=== PATIENT | female | born 1930 | race Caucasian/White ===

== ENCOUNTER 2017-02-24 11:26 | Inpatient (IN) | payer MEDICARE, OTHER ==
[2017-02-24 12:29] LABS: BASO % 0.4 % (0.0-2.0); EOS # 0.1 K/uL (0.0-0.7); EOS % 1.8 % (0.0-4.0); HEMATOCRIT 33.8 % (34.0-47.0); LYMPH # 1.8 K/uL (1.0-4.3); MEAN CELL VOLUME 95.9 fl (81.0-99.0); MEAN CORPUSCULAR HEMOGLOBIN 30.8 pg (27.0-31.0); MEAN CORPUSCULAR HGB CONC 32.1 g/dL (33.0-37.0); MEAN PLATELET VOLUME 8.2 fl (7.2-11.7); MONO # 0.7 K/uL (0.0-0.8); MONO % 8.1 % (0.0-10.0); NEUT # 5.4 K/uL (1.8-7.0); NEUT % 67.7 % (50.0-75.0); RED CELL DISTRIBUTION WIDTH 15.5 % (11.5-14.5)
[2017-02-24 12:43] LABS: BILIRUBIN,TOTAL 0.3 mg/dl (0.2-1.3); POTASSIUM 4.6 MMOL/L (3.6-5.0); TOTAL PROTEIN 7.5 G/DL (6.3-8.2)
[2017-02-24 12:57] LABS: TROPONIN I 0.014 ng/mL (0.00-0.120)
--- NOTE | 2017-02-24 13:18 | RAD ---
HISTORY: cough COMPARISON: No prior. TECHNIQUE: Chest PA and lateral FINDINGS: LUNGS: Stable chronic prominence of the bilateral interstitial markings. No focal consolidation. PLEURA: No significant pleural effusion identified. No pneumothorax apparent. CARDIOVASCULAR: Atherosclerotic aortic calcifications. Cardiomediastinal silhouette unremarkable. OSSEOUS STRUCTURES: Unchanged. VISUALIZED UPPER ABDOMEN: Normal. OTHER FINDINGS: None. IMPRESSION: Stable chronic prominence of the bilateral interstitial markings. No focal consolidation pleural effusion.
--- NOTE | 2017-02-24 13:31 | CARD ---
APPROVED REPORT EKG Measurement Heart [id number] <Conclusion> Accelerated Junctional rhythm Abnormal ECG
[2017-02-24] MEDS ORDERED: cefTRIAXone IV 1 gm in Dextros 50 ML IVPB STA (13:40)
--- NOTE | 2017-02-24 13:46 | ED PDOC ---
HPI: CCC, URI, Sore Throat Time Seen by Provider: 02/24/17 11:54 Chief Complaint (Nursing): Weakness/Neurological Deficit Chief Complaint (Provider): cough History Per: Patient History/Exam Limitations: no limitations Additional Complaint(s): 83yo F in ED with cough x 3 week with low grade fever and whit sputum production hx of CHF DM. Pt denies chest pain with cough, denies palpitations denies abdominal pain. dneis LE swelling. Past Medical History Reviewed: Historical Data, Nursing Documentation, Vital Signs Vital Signs: Last Vital Signs Temp 97.9 F 02/24/17 11:37 Pulse 79 02/24/17 11:37 Resp 20 02/24/17 11:37 BP 134/50 L 02/24/17 11:37 Pulse Ox 93 L 02/24/17 11:37 - Medical History PMH: CHF, HTN, Hypercholesterolemia Denies: HIV, Chronic Kidney Disease - Surgical History Surgical History: Cholecystectomy (1994) - Family History Family History: States: No Known Family Hx - Home Medications Home Medications: Ambulatory Orders Medication Instructions Recorded Albiglutide [Tanzeum] 50 mg SC QWK 04/09/15 Alendronate [Fosamax] 70 mg PO QWK 04/09/15 Aspirin [Aspirin EC] 81 mg PO DAILY 04/09/15 Calcium Carbonate [Calcium 600] 600 mg PO BID 04/09/15 Carvedilol [Coreg] 25 mg PO BID 04/09/15 Clopidogrel [Plavix] 75 mg PO DAILY 04/09/15 Enalapril Maleate [Enalapril 20 mg PO DAILY 04/09/15 Maleate] Linagliptin [Tradjenta] 5 mg PO DAILY 04/09/15 Multivit,Iron,Min 5/Folic Acid 1 tab PO DAILY 04/09/15 [Strovite Forte] Omeprazole [Omeprazole] 40 mg PO DAILY 04/09/15 Simvastatin [Zocor] 20 mg PO HS 04/09/15 amLODIPine [Norvasc] 5 mg PO DAILY 04/09/15 Atorvastatin [Lipitor] 10 mg PO DAILY #0 tab 04/11/15 Calcium Carbonate [Oscal] 500 mg PO DAILY #0 tab 04/11/15 Carvedilol [Coreg] 25 mg PO BID #0 tab 04/11/15 Clopidogrel [Plavix] 75 mg PO DAILY #0 tab 04/11/15 Enalapril Maleate [Vasotec] 20 mg PO DAILY #0 tab 04/11/15 Ferrous Sulfate 325 mg PO DAILY #0 tab 04/11/15 Furosemide [Lasix] 40 mg IVP DAILY #0 vial 04/11/15 Furosemide [Lasix] 40 mg PO DAILY #0 bottle 04/11/15 Linagliptin [Tradjenta] 5 mg PO DAILY 04/11/15 Potassium Chloride [K-Dur 10] 10 meq PO DAILY #0 ter 04/11/15 amLODIPine [Norvasc] 5 mg PO DAILY #0 tab 04/11/15 - Allergies Allergies/Adverse Reactions: Allergies Allergy/AdvReac Type Severity Reaction Status Date / Time No Known Allergies Allergy Verified 04/09/15 15:36 Curb-65 Severity Score - CURB-65 Severity Score Confusion: No Bun >19mg/dl (>7mmol/L): No Respiratory Rate greater than/equal to 30: No Systolic BP <90 or Diastolic BP less than/equal 60mmHg: No Age >64: Yes Curb-65 Score: 1 Percentage 30-day mortality: 2.7% Review of Systems ROS Statement: Except As Marked, All Systems Reviewed And Found Negative Constitutional: Negative for: Fever, Chills Respiratory: Positive for: Cough, Shortness of Breath, SOB with Exertion, Sputum , Wheezing Physical Exam - Reviewed Nursing Documentation Reviewed: Yes Vital Signs Reviewed: Yes - Physical Exam Appears: Positive for: Well, Non-toxic, No Acute Distress Head Exam: Positive for: ATRAUMATIC, NORMAL INSPECTION, NORMOCEPHALIC Skin: Positive for: Normal Color, Warm, DRY Eye Exam: Positive for: Normal appearance, EOMI, PERRL Neck: Positive for: Normal, Painless ROM Cardiovascular/Chest: Positive for: Regular Rate, Rhythm Respiratory: Positive for: Rales, Rhonchi Gastrointestinal/Abdominal: Positive for: Normal Exam, Bowel Sounds, Soft Back: Positive for: Normal Inspection Extremity: Positive for: Normal ROM Neurologic/Psych: Positive for: Alert, Oriented - Laboratory Results Result Diagrams: 02/24/17 12:20 02/24/17 12:20 - ECG O2 Sat by Pulse Oximetry: 93 - Radiology X-Ray: Interpreted by Me, Read By Radiologist Medical Decision Making Medical Decision Making: [facility] MD pt started on azithromycin and Rocephin IV in ER Disposition - Clinical Impression Clinical Impression: COPD exacerbation - Patient ED Disposition Is Patient to be Admitted: Yes - Disposition Disposition Time: 13:56 Condition: STABLE - Pt Status Changed To: Hospital Disposition Of: Inpatient - Admit Certification Admit to Inpatient:: After my assessment, the patient will require hospitalization for at least two midnights. This is because of the severity of symptoms shown, intensity of services needed, and/or the medical risk in this patient being treated as an outpatient.
[2017-02-24] MEDS ORDERED: cefTRIAXone (Rocephin) 250 mg Inj ONE (14:05)
[2017-02-24] MEDS ORDERED: Azithromycin 500 MG in Sodium Chloride 0.9% 250 ML IVPB SCH (16:45)
[2017-02-24] MEDS: Enoxaparin 30 mg Syringe SC SCH (17:27)
[2017-02-24] MEDS: Calcium-Vit D 500 mg-200 Units Tab UD PO SCH (17:27)
[2017-02-24] MEDS: Dexamethasone/Tobramycin Ophth Susp OU SCH (17:28)
[2017-02-24] MEDS: Azithromycin 500 MG in Sodium Chloride 0.9% 250 ML IVPB SCH (20:52)
--- NOTE | 2017-02-24 22:14 | CP.PCM.HP ---
History of Present Illness - History of Present Illness History of Present Illness: This is an 86 y/o female with hx of DM 2 CKD 2 and HTN who was admitted for worsening of productive cough for the past week. Past Patient History - Infectious Disease Hx of Infectious Diseases: None - Past Medical History & Family History Past Medical History?: Yes - Past Social History Smoking Status: Never Smoked - CARDIAC Hx Cardiac Disorders: Yes (HTN) Hx Hypertension: Yes - PULMONARY Hx Respiratory Disorders: Yes (COPD) - NEUROLOGICAL Hx Neurological Disorder: No - HEENT Hx HEENT Problems: No Hx Cataracts: Yes (s/p cataract surgery) - RENAL Hx Chronic Kidney Disease: No Hx Dialysis: No - ENDOCRINE/METABOLIC Hx Endocrine Disorders: Yes (DM) - HEMATOLOGICAL/ONCOLOGICAL Hx Blood Disorders: No Hx Human Immunodeficiency Virus (HIV): No - INTEGUMENTARY Hx Dermatological Problems: No - MUSCULOSKELETAL/RHEUMATOLOGICAL Hx Musculoskeletal Disorders: No Hx Falls: No - GASTROINTESTINAL Hx Gastrointestinal Disorders: No - GENITOURINARY/GYNECOLOGICAL Hx Genitourinary Disorders: No - PSYCHIATRIC Hx Psychophysiologic Disorder: No Hx Substance Use: No - SURGICAL HISTORY Hx Cholecystectomy: Yes (1994) - ANESTHESIA Hx Anesthesia: Yes Hx Anesthesia Reactions: No Hx Malignant Hyperthermia: No Meds Allergies/Adverse Reactions: Allergies Allergy/AdvReac Type Severity Reaction Status Date / Time No Known Allergies Allergy Verified 04/09/15 15:36 Results - Vital Signs Recent Vital Signs: Last Vital Signs Temp 98.5 F 02/24/17 16:15 Pulse 78 02/24/17 17:27 Resp 19 02/24/17 16:30 BP 145/76 02/24/17 17:27 Pulse Ox 95 02/24/17 16:30 - Labs Result Diagrams: 02/24/17 12:20 02/24/17 12:20 Labs: Laboratory Results - last 24 hr 02/24/17 02/24/17 02/24/17 12:20 12:20 12:20 WBC 8.0 D RBC 3.52 L Hgb 10.9 L Hct 33.8 L MCV 95.9 D MCH 30.8 MCHC 32.1 L RDW 15.5 H Plt Count 154 MPV 8.2 Neut % (Auto) 67.7 Lymph % (Auto) 22.0 [place] % (Auto) 8.1 Eos % (Auto) 1.8 Baso % (Auto) 0.4 Neut # 5.4 Lymph # 1.8 [place] # 0.7 Eos # 0.1 Baso # 0.0 Sodium 137 Potassium 4.6 Chloride 104 Carbon Dioxide 25 Anion Gap 13 BUN 32 H Creatinine 1.3 H Est GFR ( Amer) 47 Est GFR (Non-Af Amer) 39 Random Glucose 133 H Calcium 9.0 Total Bilirubin 0.3 AST 33 ALT 28 Alkaline Phosphatase 86 Troponin I 0.0140 NT-Pro-B Natriuret Pep 662 Total Protein 7.5 Albumin 3.7 Globulin 3.7 Albumin/Globulin Ratio 1.0 Influenza Typ A,B (EIA) Negative for flu a/b
[2017-02-24 23:19] LABS: RBC URINE 1 /hpf (0-3); URINE BILIRUBIN NEGATIVE (NEGATIVE); URINE BLOOD NEGATIVE (NEGATIVE); URINE COLOR STRAW (YELLOW); URINE GLUCOSE (UA) NEG (Normal); URINE KETONE NEGATIVE (NEGATIVE); URINE LEUKOCYTE ESTERASE NEG Leu/uL (Negative); URINE PROTEIN NEGATIVE (NEGATIVE); URINE UROBILINOGEN 0.2-1.0 mg/dL (0.2-1.0); WBC URINE 1 /hpf (0-5)
[2017-02-25] MEDS: guaiFENesin DM 200 mg-20 mg/10 ml UD PO PRN (06:15)
[2017-02-25] MEDS: Albuterol-Ipratrop 3 mg / 0.5 (3 ml) UD INH SCH ×4 (08:02→19:01)
[2017-02-25] MEDS ORDERED: cefTRIAXone 1 gm in cefTRIAXone IV 1 gm in Dextros 50 ML IVPB SCH (09:00)
[2017-02-25] MEDS: Calcium-Vit D 500 mg-200 Units Tab UD PO SCH ×2 (09:52→17:10)
[2017-02-25] MEDS: Dexamethasone/Tobramycin Ophth Susp OU SCH ×2 (09:52→17:10)
[2017-02-25] MEDS: Pantoprazole 40 mg EC Tab PO SCH (09:53)
[2017-02-25] MEDS: Enoxaparin 30 mg Syringe SC SCH (09:53)
[2017-02-25] MEDS: Azithromycin 500 MG in Sodium Chloride 0.9% 250 ML IVPB SCH (21:21)
[2017-02-26] MEDS: guaiFENesin DM 200 mg-20 mg/10 ml UD PO PRN (05:37)
[2017-02-26] MEDS: Albuterol-Ipratrop 3 mg / 0.5 (3 ml) UD INH SCH ×4 (07:40→19:14)
[2017-02-26] MEDS: cefTRIAXone IV 1 gm in Dextros 50 ML IVPB SCH (09:52)
[2017-02-26] MEDS: Calcium-Vit D 500 mg-200 Units Tab UD PO SCH ×2 (09:52→17:42)
[2017-02-26] MEDS: Pantoprazole 40 mg EC Tab PO SCH (09:53)
[2017-02-26] MEDS: Dexamethasone/Tobramycin Ophth Susp OU SCH ×2 (09:55→17:42)
[2017-02-26] MEDS: Enoxaparin 30 mg Syringe SC SCH (09:56)
[2017-02-26] MEDS: Promethazine/Cod 6.25mg-10mg/5ml Syr UD PO SCH (22:14)
[2017-02-26] MEDS: Azithromycin 500 MG in Sodium Chloride 0.9% 250 ML IVPB SCH (22:14)
[2017-02-27] MEDS: Albuterol-Ipratrop 3 mg / 0.5 (3 ml) UD INH SCH ×4 (07:34→19:04)
[2017-02-27] MEDS: Enoxaparin 30 mg Syringe SC SCH (10:10)
[2017-02-27] MEDS: Pantoprazole 40 mg EC Tab PO SCH (10:10)
[2017-02-27] MEDS: cefTRIAXone IV 1 gm in Dextros 50 ML IVPB SCH (10:10)
[2017-02-27] MEDS: Calcium-Vit D 500 mg-200 Units Tab UD PO SCH ×2 (10:10→19:34)
[2017-02-27] MEDS: Dexamethasone/Tobramycin Ophth Susp OU SCH ×2 (10:11→19:34)
--- NOTE | 2017-02-27 11:07 | CP.PCM.PN ---
Subjective - Date & Time of Evaluation Date of Evaluation: 02/25/17 Time of Evaluation: 10:45 - Subjective Subjective: Has a lot of cough Has no fever. Could not sleep due to cough Objective - Vital Signs/Intake and Output Vital Signs (last 24 hours): Temp Pulse Resp BP Pulse Ox 98.1 F 74 20 139/73 100 02/27/17 08:02 02/27/17 10:08 02/27/17 08:02 02/27/17 10:08 02/27/17 08:02 - Medications Medications: Current Medications Albuterol/Ipratropium (Duoneb 3 Mg/0.5 Mg (3 Ml) Ud) 3 ml INH RQID [facility] Last Admin: 02/27/17 07:34 Dose: 3 ml Aspirin (Ecotrin) 81 mg PO DAILY [facility] Last Admin: 02/27/17 10:09 Dose: 81 mg Atorvastatin Calcium (Lipitor) 20 mg PO DAILY [facility] Last Admin: 02/27/17 10:09 Dose: 20 mg Benzonatate (Tessalon Perles) 100 mg PO TID PRN PRN Reason: Cough Calcium/Vitamin D (Oyster Shell Calcium/Vitamin D 500 Mg-200 Iu) 1 tab PO BID [facility] Last Admin: 02/27/17 10:10 Dose: 1 tab Carvedilol (Coreg) 25 mg PO BID [facility] Last Admin: 02/27/17 10:08 Dose: 25 mg Clopidogrel Bisulfate (Plavix) 75 mg PO DAILY [facility] Last Admin: 02/27/17 10:10 Dose: 75 mg Enalapril Maleate (Vasotec) 20 mg PO DAILY@2100 [facility] Last Admin: 02/26/17 22:14 Dose: 20 mg Enoxaparin Sodium (Lovenox) 30 mg SC DAILY [facility] PRN Reason: Protocol Last Admin: 02/27/17 10:10 Dose: 30 mg Guaifenesin/Dextromethorphan (Robitussin Dm) 10 ml PO Q6 PRN PRN Reason: Cough Last Admin: 02/26/17 05:37 Dose: 10 ml Home Med (Dulaglutide [Trulicity]) 1.5 mg SC QWK [facility] Azithromycin 500 mg/ Sodium (Chloride) 250 mls @ 250 mls/hr IVPB DAILY@2100 [facility] PRN Reason: Protocol Last Admin: 02/26/17 22:14 Dose: 250 mls/hr Ceftriaxone Sodium (Rocephin Iv 1 Gm Duplex) 50 mls @ 50 mls/hr IVPB DAILY [facility] PRN Reason: Protocol Last Admin: 02/27/17 10:10 Dose: 50 mls/hr Pantoprazole Sodium (Protonix Ec Tab) 40 mg PO DAILY [facility] Last Admin: 02/27/17 10:10 Dose: 40 mg Pioglitazone HCl (Actos) 15 mg PO DAILY [facility] Last Admin: 02/27/17 10:08 Dose: 15 mg Promethazine HCl/Codeine (Phenergan/Codeine Oral Syrup) 10 ml PO HS [facility] Last Admin: 02/26/17 22:14 Dose: 10 ml Tobramycin/Dexamethasone (Tobradex Opht Susp) 1 drop OU BID [facility] Last Admin: 02/27/17 10:11 Dose: 1 drop - Labs Labs: 02/24/17 12:20 02/24/17 12:20
--- NOTE | 2017-02-27 11:08 | CP.PCM.PN ---
Subjective - Date & Time of Evaluation Date of Evaluation: 02/26/17 Time of Evaluation: 11:00 - Subjective Subjective: Patient has no chest pain But coughs a lot giovani at night Has body weakness Has poor appetite CXR showed chronic changes. Objective - Vital Signs/Intake and Output Vital Signs (last 24 hours): Temp Pulse Resp BP Pulse Ox 98.1 F 74 20 139/73 100 02/27/17 08:02 02/27/17 10:08 02/27/17 08:02 02/27/17 10:08 02/27/17 08:02 - Medications Medications: Current Medications Albuterol/Ipratropium (Duoneb 3 Mg/0.5 Mg (3 Ml) Ud) 3 ml INH RQID [facility] Last Admin: 02/27/17 07:34 Dose: 3 ml Aspirin (Ecotrin) 81 mg PO DAILY [facility] Last Admin: 02/27/17 10:09 Dose: 81 mg Atorvastatin Calcium (Lipitor) 20 mg PO DAILY [facility] Last Admin: 02/27/17 10:09 Dose: 20 mg Benzonatate (Tessalon Perles) 100 mg PO TID PRN PRN Reason: Cough Calcium/Vitamin D (Oyster Shell Calcium/Vitamin D 500 Mg-200 Iu) 1 tab PO BID [facility] Last Admin: 02/27/17 10:10 Dose: 1 tab Carvedilol (Coreg) 25 mg PO BID [facility] Last Admin: 02/27/17 10:08 Dose: 25 mg Clopidogrel Bisulfate (Plavix) 75 mg PO DAILY [facility] Last Admin: 02/27/17 10:10 Dose: 75 mg Enalapril Maleate (Vasotec) 20 mg PO DAILY@2100 [facility] Last Admin: 02/26/17 22:14 Dose: 20 mg Enoxaparin Sodium (Lovenox) 30 mg SC DAILY [facility] PRN Reason: Protocol Last Admin: 02/27/17 10:10 Dose: 30 mg Guaifenesin/Dextromethorphan (Robitussin Dm) 10 ml PO Q6 PRN PRN Reason: Cough Last Admin: 02/26/17 05:37 Dose: 10 ml Home Med (Dulaglutide [Trulicity]) 1.5 mg SC QWK [facility] Azithromycin 500 mg/ Sodium (Chloride) 250 mls @ 250 mls/hr IVPB DAILY@2100 [facility] PRN Reason: Protocol Last Admin: 02/26/17 22:14 Dose: 250 mls/hr Ceftriaxone Sodium (Rocephin Iv 1 Gm Duplex) 50 mls @ 50 mls/hr IVPB DAILY [facility] PRN Reason: Protocol Last Admin: 02/27/17 10:10 Dose: 50 mls/hr Pantoprazole Sodium (Protonix Ec Tab) 40 mg PO DAILY [facility] Last Admin: 02/27/17 10:10 Dose: 40 mg Pioglitazone HCl (Actos) 15 mg PO DAILY [facility] Last Admin: 02/27/17 10:08 Dose: 15 mg Promethazine HCl/Codeine (Phenergan/Codeine Oral Syrup) 10 ml PO HS [facility] Last Admin: 02/26/17 22:14 Dose: 10 ml Tobramycin/Dexamethasone (Tobradex Opht Susp) 1 drop OU BID [facility] Last Admin: 02/27/17 10:11 Dose: 1 drop - Labs Labs: 02/24/17 12:20 02/24/17 12:20
--- NOTE | 2017-02-27 11:08 | CP.PCM.PN ---
Subjective - Date & Time of Evaluation Date of Evaluation: 02/27/17 Time of Evaluation: 11:08 - Subjective Subjective: Patient is a lot better today Feels very weak., She lives alone Still with a lot of cough. Objective - Vital Signs/Intake and Output Vital Signs (last 24 hours): Temp Pulse Resp BP Pulse Ox 98.1 F 74 20 139/73 100 02/27/17 08:02 02/27/17 10:08 02/27/17 08:02 02/27/17 10:08 02/27/17 08:02 - Medications Medications: Current Medications Albuterol/Ipratropium (Duoneb 3 Mg/0.5 Mg (3 Ml) Ud) 3 ml INH RQID [facility] Last Admin: 02/27/17 07:34 Dose: 3 ml Aspirin (Ecotrin) 81 mg PO DAILY [facility] Last Admin: 02/27/17 10:09 Dose: 81 mg Atorvastatin Calcium (Lipitor) 20 mg PO DAILY [facility] Last Admin: 02/27/17 10:09 Dose: 20 mg Benzonatate (Tessalon Perles) 100 mg PO TID PRN PRN Reason: Cough Calcium/Vitamin D (Oyster Shell Calcium/Vitamin D 500 Mg-200 Iu) 1 tab PO BID [facility] Last Admin: 02/27/17 10:10 Dose: 1 tab Carvedilol (Coreg) 25 mg PO BID [facility] Last Admin: 02/27/17 10:08 Dose: 25 mg Clopidogrel Bisulfate (Plavix) 75 mg PO DAILY [facility] Last Admin: 02/27/17 10:10 Dose: 75 mg Enalapril Maleate (Vasotec) 20 mg PO DAILY@2100 [facility] Last Admin: 02/26/17 22:14 Dose: 20 mg Enoxaparin Sodium (Lovenox) 30 mg SC DAILY [facility] PRN Reason: Protocol Last Admin: 02/27/17 10:10 Dose: 30 mg Guaifenesin/Dextromethorphan (Robitussin Dm) 10 ml PO Q6 PRN PRN Reason: Cough Last Admin: 02/26/17 05:37 Dose: 10 ml Home Med (Dulaglutide [Trulicity]) 1.5 mg SC QWK [facility] Azithromycin 500 mg/ Sodium (Chloride) 250 mls @ 250 mls/hr IVPB DAILY@2100 [facility] PRN Reason: Protocol Last Admin: 02/26/17 22:14 Dose: 250 mls/hr Ceftriaxone Sodium (Rocephin Iv 1 Gm Duplex) 50 mls @ 50 mls/hr IVPB DAILY [facility] PRN Reason: Protocol Last Admin: 02/27/17 10:10 Dose: 50 mls/hr Pantoprazole Sodium (Protonix Ec Tab) 40 mg PO DAILY [facility] Last Admin: 02/27/17 10:10 Dose: 40 mg Pioglitazone HCl (Actos) 15 mg PO DAILY [facility] Last Admin: 02/27/17 10:08 Dose: 15 mg Promethazine HCl/Codeine (Phenergan/Codeine Oral Syrup) 10 ml PO HS [facility] Last Admin: 02/26/17 22:14 Dose: 10 ml Tobramycin/Dexamethasone (Tobradex Opht Susp) 1 drop OU BID [facility] Last Admin: 02/27/17 10:11 Dose: 1 drop - Labs Labs: 02/24/17 12:20 02/24/17 12:20
--- NOTE | 2017-02-27 11:30 | CP.PCM.PCO ---
Assessment & Plan - Assessment and Plan (Free Text) Assessment: 82 yr old F with pmhx CHF, copd admitted with copd exacerbation pt. will required 1 week of Iv Abx Rocephin 1gm iv daily x 7 days zithromax 500 mg iv daily x 7 days
[2017-02-27 11:57] LABS: HEMATOCRIT 32.8 % (34.0-47.0); MEAN CELL VOLUME 95.1 fl (81.0-99.0); MEAN CORPUSCULAR HEMOGLOBIN 31.1 pg (27.0-31.0); MEAN CORPUSCULAR HGB CONC 32.8 g/dL (33.0-37.0); RED CELL DISTRIBUTION WIDTH 15.2 % (11.5-14.5)
[2017-02-27 12:19] LABS: CALCIUM 9.1 mg/dL (8.4-10.2); POTASSIUM 4.4 MMOL/L (3.6-5.0)
--- NOTE | 2017-02-27 12:26 | CARD ---
APPROVED REPORT EXAM: Two-dimensional and M-mode echocardiogram with Doppler and color Doppler. Other Information Quality : GoodRhythm : NSR INDICATION Congestive Heart Failure 2D DIMENSIONS IVSd1.06 (0.7-1.1cm)LVDd4.19 (3.9-5.9cm) LVOT Diameter1.67 (1.8-2.4cm)PWd1.01 (0.7-1.1cm) IVSs0.97 (0.8-1.2cm)LVDs2.67 (2.5-4.0cm) FS (%) 36.3 %PWs1.13 (0.8-1.2cm) M-Mode DIMENSIONS Left Atrium (MM)3.73 (2.5-4.0cm)IVSd1.08 (0.7-1.1cm) Aortic Root3.19 (2.2-3.7cm)LVDd4.63 (4.0-5.6cm) Aortic Cusp Exc.1.57 (1.5-2.0cm)PWd0.93 (0.7-1.1cm) IVSs1.29 cmFS (%) 41 % LVDs2.75 (2.0-3.8cm)PWs1.21 cm Mitral Valve MV E Earxcmhs44.8cm/sMV DECEL [id number] A Wzfzpzqf804.5cm/s MV HRP30ngG/A ratio1.0MVA (PHT)4.36cm2 TDI Lateral E' Peak V6.27cm/sMedial E' Peak V6.11cm/sE/Lateral E'15.3 E/Medial E'15.7 Pulmonary Valve PV Peak Gjcrtxgu46.8cm/s Tricuspid Valve TR Peak Mlbblrni930zj/sRAP BCWARSUT09hrEnTJ Peak Gr.32mmHg ZGTK50fkDy LEFT VENTRICLE The left ventricle is normal size. There is normal left ventricular wall thickness. The left ventricular function is normal. The left ventricular ejection fraction is within the normal range. The Ejection Fraction is 60-65%. There is normal LV segmental wall motion. Transmitral Doppler flow pattern is Grade I-abnormal relaxation pattern. No left ventricle thrombus noted on this study. There is no mass noted in the left ventricle. RIGHT VENTRICLE The right ventricle is normal size. There is normal right ventricular wall thickness. The right ventricular systolic function is normal. ATRIA The left atrium size is normal. The right atrium size is normal. The interatrial septum is intact with no evidence for an atrial septal defect. AORTIC VALVE The aortic valve is normal in structure. No aortic regurgitation is present. There is no aortic valvular stenosis. There is no aortic valvular vegetation. MITRAL VALVE The mitral valve is normal in structure. There is no evidence of mitral valve prolapse. There is no mitral valve stenosis. There is no mitral valve regurgitation noted. TRICUSPID VALVE The tricuspid valve is normal in structure. There is trace to mild tricuspid regurgitation. Right ventricular systolic pressure is estimated at 42 mmHg. There is mild pulmonary hypertension. There is no tricuspid valve prolapse or vegetation. There is no tricuspid valve stenosis. PULMONIC VALVE The pulmonary valve is normal in structure. There is no pulmonic valvular regurgitation. There is no pulmonic valvular stenosis. GREAT VESSELS The aortic root is normal in size. The IVC is normal in size and collapses >50% with inspiration. PERICARDIAL EFFUSION The pericardium appears normal. There is no pleural effusion. <Conclusion> The left ventricle is normal size. The left ventricular function is normal. The left ventricular ejection fraction is within the normal range. The Ejection Fraction is 60-65%. Transmitral Doppler flow pattern is Grade I-abnormal relaxation pattern. There is trace to mild tricuspid regurgitation. Right ventricular systolic pressure is estimated at 42 mmHg. There is mild pulmonary hypertension.
[2017-02-27] MEDS: Azithromycin 500 MG in Sodium Chloride 0.9% 250 ML IVPB SCH (21:40)
[2017-02-27] MEDS: Promethazine/Cod 6.25mg-10mg/5ml Syr UD PO SCH (23:52)
[2017-02-28 08:13] VITALS: BP 148/77; PULSE 76; RESP 18; TEMP 97.6; O2SAT 95
[2017-02-28] MEDS: Calcium-Vit D 500 mg-200 Units Tab UD PO SCH (09:24)
[2017-02-28] MEDS: Pantoprazole 40 mg EC Tab PO SCH (09:25)
[2017-02-28] MEDS: Enoxaparin 30 mg Syringe SC SCH (09:25)
[2017-02-28] MEDS: cefTRIAXone IV 1 gm in Dextros 50 ML IVPB SCH (09:27)
[2017-02-28] MEDS: Dexamethasone/Tobramycin Ophth Susp OU SCH (09:27)
--- NOTE | 2017-02-28 11:37 | CP.PCM.DIS ---
Provider - Provider Date of Admission: 02/25/17 20:13 Attending physician: Raymond Pacheco MD Time Spent in preparation of Discharge (in minutes): 35 Diagnosis - Discharge Diagnosis (1) COPD exacerbation Status: Resolved Hospital Course - Lab Results Lab Results: Micro Results 02/24/17 12:43 Blood Blood Culture - Preliminary NO GROWTH AFTER 3 DAYS Most Recent Lab Values WBC 5.0 K/uL (4.8-10.8) 02/27/17 11:48 RBC 3.45 Mil/uL (3.80-5.20) L 02/27/17 11:48 Hgb 10.7 g/dL (12.0-16.0) L 02/27/17 11:48 Hct 32.8 % (34.0-47.0) L 02/27/17 11:48 MCV 95.1 fl (81.0-99.0) 02/27/17 11:48 MCH 31.1 pg (27.0-31.0) H 02/27/17 11:48 MCHC 32.8 g/dL (33.0-37.0) L 02/27/17 11:48 RDW 15.2 % (11.5-14.5) H 02/27/17 11:48 Plt Count 153 K/uL (130-400) 02/27/17 11:48 MPV 8.2 fl (7.2-11.7) 02/24/17 12:20 Neut % (Auto) 67.7 % (50.0-75.0) 02/24/17 12:20 Lymph % (Auto) 22.0 % (20.0-40.0) 02/24/17 12:20 [place] % (Auto) 8.1 % (0.0-10.0) 02/24/17 12:20 Eos % (Auto) 1.8 % (0.0-4.0) 02/24/17 12:20 Baso % (Auto) 0.4 % (0.0-2.0) 02/24/17 12:20 Neut # 5.4 K/uL (1.8-7.0) 02/24/17 12:20 Lymph # 1.8 K/uL (1.0-4.3) 02/24/17 12:20 [place] # 0.7 K/uL (0.0-0.8) 02/24/17 12:20 Eos # 0.1 K/uL (0.0-0.7) 02/24/17 12:20 Baso # 0.0 K/uL (0.0-0.2) 02/24/17 12:20 Sodium 138 mmol/l (132-148) 02/27/17 11:48 Potassium 4.4 MMOL/L (3.6-5.0) 02/27/17 11:48 Chloride 102 mmol/L (98-107) 02/27/17 11:48 Carbon Dioxide 29 mmol/L (22-30) 02/27/17 11:48 Anion Gap 11 (10-20) 02/27/17 11:48 BUN 23 mg/dl (7-17) H 02/27/17 11:48 Creatinine 1.2 mg/dl (0.7-1.2) 02/27/17 11:48 Est GFR ( Amer) 51 02/27/17 11:48 Est GFR (Non-Af Amer) 42 02/27/17 11:48 Random Glucose 131 mg/dL (65-105) H 02/27/17 11:48 Calcium 9.1 mg/dL (8.4-10.2) 02/27/17 11:48 Total Bilirubin 0.3 mg/dl (0.2-1.3) 02/24/17 12:20 AST 33 U/L (14-36) 02/24/17 12:20 ALT 28 U/L (9-52) 02/24/17 12:20 Alkaline Phosphatase 86 U/L (38-126) 02/24/17 12:20 Troponin I 0.0140 ng/mL (0.00-0.120) 02/24/17 12:20 NT-Pro-B Natriuret Pep 662 pg/ml (0-900) 02/24/17 12:20 Total Protein 7.5 G/DL (6.3-8.2) 02/24/17 12:20 Albumin 3.7 g/dL (3.5-5.0) 02/24/17 12:20 Globulin 3.7 gm/dL (2.2-3.9) 02/24/17 12:20 Albumin/Globulin Ratio 1.0 (1.0-2.1) 02/24/17 12:20 Urine Color Straw (YELLOW) 02/24/17 12:17 Urine Clarity Clear (Clear) 02/24/17 12:17 Urine pH 6.0 (5.0-8.0) 02/24/17 12:17 Ur Specific [place] 1.010 (1.003-1.030) 02/24/17 12:17 Urine Protein Negative mg/dL (NEGATIVE) 02/24/17 12:17 Urine Glucose (UA) Neg mg/dL (Normal) 02/24/17 12:17 Urine Ketones Negative mg/dL (NEGATIVE) 02/24/17 12:17 Urine Blood Negative (NEGATIVE) 02/24/17 12:17 Urine Nitrate Negative (NEGATIVE) 02/24/17 12:17 Urine Bilirubin Negative (NEGATIVE) 02/24/17 12:17 Urine Urobilinogen 0.2-1.0 mg/dL (0.2-1.0) 02/24/17 12:17 Ur Leukocyte Esterase Neg Isaías/uL (Negative) 02/24/17 12:17 Urine RBC (Auto) 1 /hpf (0-3) 02/24/17 12:17 Urine Microscopic WBC 1 /hpf (0-5) 02/24/17 12:17 Ur Squamous Epith Cells < 1 /hpf (0-5) 02/24/17 12:17 Influenza Typ A,B (EIA) Negative for flu a/b (NEGATIVE) 02/24/17 12:20 - Hospital Course Hospital Course: 86 year old admitted for COPD exacerbation. Doing well. Continue with antibiotics upon discharge, zithromax. No complaints today. Breathing comfortably. Resume home medications upon discharge. Seen and examined with Dr. Pacheco. had echocardiogram done: EF >60% Discharge Exam - Head Exam Head Exam: ATRAUMATIC, NORMAL INSPECTION, NORMOCEPHALIC - Respiratory Exam Respiratory Exam: Decreased Breath Sounds, NORMAL BREATHING PATTERN. absent: Rales, Rhonchi, Wheezes - Cardiovascular Exam Cardiovascular Exam: REGULAR RHYTHM - GI/Abdominal Exam GI & Abdominal Exam: Unremarkable - Neurological Exam Neurological exam: Alert, CN II-XII Intact, Normal Gait, Oriented x3, Reflexes Normal - Psychiatric Exam Psychiatric exam: Normal Affect, Normal Mood Discharge Plan - Discharge Medications Prescriptions: Azithromycin [Zithromax] 500 mg PO DAILY #5 tablet guaiFENesin/Dextromethorphan [guaiFENesin-DM] 5 ml PO Q6 #14 udc - Follow Up Plan Condition: STABLE Disposition: HOME/ ROUTINE Instructions: COPD (Chronic Obstructive Pulmonary Disease) (DC) Additional Instructions: patient cleared for discharge to Home today by Rx for po abx given cont. Zithromax 500 mg po daily - f/u with in 1 week Referrals: Raymond Pacheco MD [Family Provider] -
== END 2017-02-28 12:42 | disposition home or self-care (01) | DRG 191 ==
LOC: H.ER 11:26 → H.ERHOLD 14:23 → H.MEDSURG1 16:06 → OBSVTOIN 02-25 20:13
PROVIDERS: ADMIT Family Medicine; ATTEND Family Medicine
DX: J44.1 Chronic obstructive pulmonary disease with (acute) exacerbation (principal); I13.0 Hypertensive heart and chronic kidney disease with heart failure and stage 1 through stage 4 chronic kidney disease, or unspecified chronic kidney disease; E11.22 Type 2 diabetes mellitus with diabetic chronic kidney disease; I50.9 Heart failure, unspecified; E11.9 Type 2 diabetes mellitus without complications; E78.00 Pure hypercholesterolemia, unspecified; N18.2 Chronic kidney disease, stage 2 (mild)